=== PATIENT | female | born 1965 | race Two or more races ===

== ENCOUNTER 2019-08-29 13:50 | Emergency (ER) | payer BC ==
[~2019-08-29] VITALS: Ht 157.5 cm; Wt 86.2 kg
[2019-08-29 14:19] LABS: Basophils # (auto) 0.1 uL; Basophils % (auto) 0.6 % (0.0-2.0); Eosinophils # (auto) 0.2 uL; Eosinophils % (auto) 2.1 % (0.0-7.0); Hematocrit 41.3 % (36.0-46.0); Hemoglobin 14.1 g/dL (12.2-16.2); Lymphocytes % (auto) 23.1 % (10.0-50.0); Mean Corpuscular Hemoglobin 29.5 pg (28.0-32.0); Mean Corpuscular Hgb Conc. 34.1 g/dL (32.0-36.0); Mean Corpuscular Volume 86.4 fL (80.0-100.0); Monocytes # (auto) 0.6 uL; Monocytes % (auto) 7.2 % (0.0-12.0); Neutrophils # (auto) 5.9 uL; Platelet Count (auto) 338 10^3/uL (140-450); Red Blood Cells 4.78 10^6/uL (4.0-5.20); Red Cell Distribution Width 14.2 % (11.8-14.3); White Blood Cell 8.9 10^3/uL (4.4-10.8)
[2019-08-29 14:59] LABS: Albumin 3.7 g/dL (3.4-5.0); Anion Gap 6 (5-15); Blood Urea Nitrogen 17 mg/dL (7-18); Carbon Dioxide 25 mmol/L (21-32); Chloride 108 mmol/L (98-107); Glucose 140 mg/dL (74-106); Magnesium 2.3 mg/dL (1.6-2.6); Potassium 4.3 mmol/L (3.5-5.1); Sodium 139 mmol/L (136-145)
[2019-08-29 15:05] LABS: Alanine Aminotransferase 28 U/L (13-56); Alkaline Phosphatase 89 U/L (45-117); Aspartate Aminotransferase 17 U/L (15-37); BUN/Creatinine Ratio 26.2; Bilirubin, Total 0.4 mg/dL (0.2-1.0); GFR African American 121 mL/min; GFR Non-African American 100 mL/min
[2019-08-29] MEDS ORDERED: ONDANSETRON HCL 4 MG/2 ML VIAL IV ONE (15:30)
[2019-08-29] MEDS ORDERED: MORPHINE SULF INJ 2 MG/ML SYRINGE 1ML IV ONE (15:30)
[2019-08-29 18:35] LABS: Urine Bacteria NONE SEEN /hpf (None Seen); Urine Blood Negative /uL (Negative); Urine Specific Gravity 1.018 (1.001-1.035); Urine WBC 1 /hpf (0 - 5)
[2019-08-29 20:00] VITALS: BP 112/55
== END 2019-08-29 22:03 | disposition home or self-care (01) ==
LOC: ER 13:52
DX: R07.89 Other chest pain (principal); M62.830 Muscle spasm of back; M54.5 Low back pain; M54.6 Pain in thoracic spine; E11.9 Type 2 diabetes mellitus without complications; E78.5 Hyperlipidemia, unspecified; I10 Essential (primary) hypertension; R11.2 Nausea with vomiting, unspecified; F41.9 Anxiety disorder, unspecified; R51 Headache
CPT/HCPCS: 36415; 70450; 71046; 72128; 80053; 81001; 83735; 84443; 84484; 85025; 93005; 96374; 96375; 99285; J2270; J2405